=== PATIENT | male | born 2000 | race Caucasian/White ===

== ENCOUNTER 2020-05-19 02:21 | Observation (INO) | payer BC ==
--- NOTE | 2020-05-19 02:47 | ED ---
SOB HPI - General Chief Complaint: Shortness of Breath Stated Complaint: SOB Time Seen by Provider: 05/19/20 02:46 Source: patient, RN notes reviewed, old records reviewed Mode of arrival: ambulatory Limitations: no limitations - History of Present Illness Initial Comments: This is a 20-year-old male DF for evaluation patient presents today for evaluati on patient has chest pain shortness of breath significant anxiety elevated heart rate feels that he can't catch his breath. No history of asthma. Patient is significantly diaphoretic on initial evaluation. Patient denies any recent fevers or travel history. Patient states she's never had such severe shortness of breath with it is now. No history of asthma nonsmoker but he does state use a vaporizer present MD Complaint: shortness of breath, chest pain, anxiety -: hour(s) Severity: severe Severity scale (1-10): 9 Consistency: constant Improves With: nothing Worsens With: nothing Known History Of: other (Patient does use today and marijuana) Context: smoke/fume exposure, anxiety Associated Symptoms: denies other symptoms Treatments Prior to Arrival: none - Related Data Home Medications Medication Instructions Recorded Confirmed No Known Home Medications 05/19/20 05/19/20 Allergies Allergy/AdvReac Type Severity Reaction Status Date / Time No Known Allergies Allergy Verified 05/20/20 21:17 Review of Systems ROS Statement: Those systems with pertinent positive or pertinent negative responses have been documented in the HPI. ROS Other: All systems not noted in ROS Statement are negative. Past Medical History Past Medical History: No Reported History History of Any Multi-Drug Resistant Organisms: None Reported Past Surgical History: No Surgical Hx Reported Past Psychological History: Anxiety Smoking Status: Vaper Past Alcohol Use History: None Reported Past Drug Use History: Marijuana - Past Family History Father Additional Family Medical History / Comment(s): Anger issues. Mother Additional Family Medical History / Comment(s): Anxiety/depression. General Exam Limitations: no limitations General appearance: alert, in no apparent distress, anxious Head exam: Present: atraumatic, normocephalic, normal inspection Eye exam: Present: normal appearance, PERRL, EOMI. Absent: scleral icterus, conjunctival injection, periorbital swelling ENT exam: Present: normal exam, mucous membranes moist Neck exam: Present: normal inspection. Absent: tenderness, meningismus, lymphadenopathy Respiratory exam: Present: normal lung sounds bilaterally. Absent: respiratory distress, wheezes, rales, rhonchi, stridor Cardiovascular Exam: Present: normal rhythm, tachycardia, normal heart sounds. Absent: systolic murmur, diastolic murmur, rubs, gallop, clicks GI/Abdominal exam: Present: soft, normal bowel sounds. Absent: distended, tenderness, guarding, rebound, rigid Extremities exam: Present: normal inspection, full ROM, normal capillary refill. Absent: tenderness, pedal edema, joint swelling, calf tenderness Back exam: Present: normal inspection Neurological exam: Present: alert, oriented X3, CN II-XII intact Psychiatric exam: Present: normal affect, normal mood Skin exam: Present: warm, dry, intact, normal color. Absent: rash Course Vital Signs 05/19/20 05/19/20 05/19/20 02:23 03:22 03:27 Temperature 99.2 F Pulse Rate 105 H 89 88 Respiratory 26 H 18 Rate Blood Pressure 132/79 103/73 O2 Sat by Pulse 99 97 Oximetry 05/19/20 05/19/20 05/19/20 03:35 04:00 06:00 Temperature Pulse Rate 100 101 H 81 Respiratory 18 16 Rate Blood Pressure 148/64 131/64 O2 Sat by Pulse 97 100 Oximetry 05/19/20 08:46 Temperature Pulse Rate 84 Respiratory 18 Rate Blood Pressure 125/84 O2 Sat by Pulse 99 Oximetry - Reevaluation(s) Reevaluation #1: 05/19/20 04:54 Medical record is reviewed Reevaluation #2: 05/19/20 04:54 Patient was severely diaphoretic initial evaluation and short of breath. Patient remains short of breath with labile heart rate going from 130s sinus tachycardia to 80. No improvement with breathing treatments still feels short of breath Medical Decision Making - Medical Decision Making 20 mailed ER with nonspecific tachycardia shortness of breath that that can be inhalation induced lung damage, low pulse ox is normal at this time. Severe anxiety attack or other heart disease, pericarditis type issue. Patient has occasional chest pain still with shortness of breath, will be admitted - Lab Data Result diagrams: 05/19/20 02:59 05/19/20 02:59 Lab Results 05/19/20 05/19/20 05/19/20 Range/Units 02:59 02:59 02:59 WBC 12.1 H (4.0-11.0) k/uL RBC 5.25 (4.30-5.90) m/uL Hgb 14.8 (13.0-17.5) gm/dL Hct 43.7 (39.0-53.0) % MCV 83.3 (80.0-100.0) fL MCH 28.2 (25.0-35.0) pg MCHC 33.9 (31.0-37.0) g/dL RDW 13.0 (11.5-15.5) % Plt Count 318 (150-450) k/uL MPV 7.1 Neutrophils % 78 % Lymphocytes % 14 % Monocytes % 4 % Eosinophils % 3 % Basophils % 1 % Neutrophils # 9.4 H (1.3-7.7) k/uL Lymphocytes # 1.7 (1.0-4.8) k/uL Monocytes # 0.5 (0-1.0) k/uL Eosinophils # 0.3 (0-0.7) k/uL Basophils # 0.1 (0-0.2) k/uL PT 11.2 (9.0-12.0) sec INR 1.1 (<1.2) APTT 24.3 (22.0-30.0) sec D-Dimer <0.17 (<0.60) mg/L FEU Sodium 138 (137-145) mmol/L Potassium 3.6 (3.5-5.1) mmol/L Chloride 103 (98-107) mmol/L Carbon Dioxide 23 (22-30) mmol/L Anion Gap 12 mmol/L BUN 9 (9-20) mg/dL Creatinine 0.77 (0.66-1.25) mg/dL Est GFR (CKD-EPI)AfAm >90 (>60 ml/min/1.73 sqM) Est GFR (CKD-EPI)NonAf >90 (>60 ml/min/1.73 sqM) Glucose 96 (74-99) mg/dL Calcium 11.3 H (8.4-10.2) mg/dL Magnesium 1.8 (1.6-2.3) mg/dL Total Bilirubin 0.7 (0.2-1.3) mg/dL AST 23 (17-59) U/L ALT 18 (4-49) U/L Alkaline Phosphatase 67 (38-126) U/L Creatine Kinase 128 (55-170) U/L CK-MB (CK-2) (0.0-2.4) ng/mL Troponin I (0.000-0.034) ng/mL NT-Pro-B Natriuret Pep pg/mL Total Protein 8.3 H (6.3-8.2) g/dL Albumin 5.2 H (3.5-5.0) g/dL TSH (0.350-5.500) uIU/mL 05/19/20 05/19/20 05/19/20 Range/Units 02:59 02:59 02:59 WBC (4.0-11.0) k/uL RBC (4.30-5.90) m/uL Hgb (13.0-17.5) gm/dL Hct (39.0-53.0) % MCV (80.0-100.0) fL MCH (25.0-35.0) pg MCHC (31.0-37.0) g/dL RDW (11.5-15.5) % Plt Count (150-450) k/uL MPV Neutrophils % % Lymphocytes % % Monocytes % % Eosinophils % % Basophils % % Neutrophils # (1.3-7.7) k/uL Lymphocytes # (1.0-4.8) k/uL Monocytes # (0-1.0) k/uL Eosinophils # (0-0.7) k/uL Basophils # (0-0.2) k/uL PT (9.0-12.0) sec INR (<1.2) APTT (22.0-30.0) sec D-Dimer (<0.60) mg/L FEU Sodium (137-145) mmol/L Potassium (3.5-5.1) mmol/L Chloride (98-107) mmol/L Carbon Dioxide (22-30) mmol/L Anion Gap mmol/L BUN (9-20) mg/dL Creatinine (0.66-1.25) mg/dL Est GFR (CKD-EPI)AfAm (>60 ml/min/1.73 sqM) Est GFR (CKD-EPI)NonAf (>60 ml/min/1.73 sqM) Glucose (74-99) mg/dL Calcium (8.4-10.2) mg/dL Magnesium (1.6-2.3) mg/dL Total Bilirubin (0.2-1.3) mg/dL AST (17-59) U/L ALT (4-49) U/L Alkaline Phosphatase (38-126) U/L Creatine Kinase (55-170) U/L CK-MB (CK-2) 0.2 (0.0-2.4) ng/mL Troponin I <0.012 (0.000-0.034) ng/mL NT-Pro-B Natriuret Pep 34 pg/mL Total Protein (6.3-8.2) g/dL Albumin (3.5-5.0) g/dL TSH 1.500 (0.350-5.500) uIU/mL - EKG Data -: EKG Interpreted by Me (EKG shows sinus rhythm 75, LA 138 QRS 102 QTC 424) Disposition Clinical Impression: Anxiety, Tachycardia Disposition: ADMITTED IP TO THIS HOSP Condition: Good Is patient prescribed a controlled substance at d/c from ED?: No
[2020-05-19] MEDS ORDERED: LORazepam 2 MG/ML INJ IV STA (02:51)
[2020-05-19] MEDS ORDERED: SODIUM CHLORIDE 0.9% 1,000 ML IV STA ×2 (02:51)
[2020-05-19] MEDS ORDERED: IPRATROPIUM-ALBUTEROL 3 ML NEB INHALATION STA (02:51)
[2020-05-19] MEDS ORDERED: SODIUM CHLORIDE 0.9% 500 ML 500 ML IV STA (02:51)
[2020-05-19] MEDS ORDERED: KETOROLAC 15 MG/ML 1 ML VIAL IVP STA (02:52)
[2020-05-19 03:15] LABS: Basophils # (A) 0.1 k/uL (0-0.2); Basophils % (A) 1 %; Eosinophils # (A) 0.3 k/uL (0-0.7); Eosinophils % (A) 3 %; HCT 43.7 % (39.0-53.0); HGB 14.8 gm/dL (13.0-17.5); Lymphocytes # (A) 1.7 k/uL (1.0-4.8); Lymphocytes % (A) 14 %; MCH 28.2 pg (25.0-35.0); MCHC 33.9 g/dL (31.0-37.0); MCV 83.3 fL (80.0-100.0); Mean Platelet Volume 7.1; Monocytes # (A) 0.5 k/uL (0-1.0); Monocytes % (A) 4 %; Neutrophils # (A) 9.4 k/uL (1.3-7.7); Neutrophils % (A) 78 %; Platelet Count 318 k/uL (150-450); RBC 5.25 m/uL (4.30-5.90); WBC 12.1 k/uL (4.0-11.0)
--- NOTE | 2020-05-19 03:23 | XR ---
EXAM: XR Chest, 2 Views CLINICAL HISTORY: ITS.REASON XR Reason: difficulty breathing TECHNIQUE: Frontal and lateral views of the chest. COMPARISON: No relevant prior studies available. FINDINGS: Lungs: Unremarkable. No consolidation. Pleural space: Unremarkable. No pneumothorax. Heart: Unremarkable. No cardiomegaly. Mediastinum: Unremarkable. Bones/joints: Unremarkable. IMPRESSION: No acute cardiopulmonary process is identified.
[2020-05-19 03:42] LABS: D-Dimer <0.17 mg/L FEU (<0.60); INR 1.1 (<1.2); Partial Thromboplastin Time 24.3 sec (22.0-30.0); Prothrombin Time 11.2 sec (9.0-12.0)
[2020-05-19 03:46] LABS: Creatine Kinase MB 0.2 ng/mL (0.0-2.4); Troponin I <0.012 ng/mL (0.000-0.034)
[2020-05-19 04:00] LABS: Potassium 3.6 mmol/L (3.5-5.1)
[2020-05-19 04:01] LABS: ALT 18 U/L (4-49); AST 23 U/L (17-59); African American GFR (CKD) >90 (>60 ml/min/1.73 sqM); Albumin 5.2 g/dL (3.5-5.0); Alkaline Phosphatase 67 U/L (38-126); Anion Gap 12 mmol/L; Blood Urea Nitrogen 9 mg/dL (9-20); Calcium 11.3 mg/dL (8.4-10.2); Carbon Dioxide 23 mmol/L (22-30); Chloride 103 mmol/L (98-107); Creatine Kinase 128 U/L (55-170); Glucose 96 mg/dL (74-99); Magnesium 1.8 mg/dL (1.6-2.3); Non-African American GFR(CKD) >90 (>60 ml/min/1.73 sqM); Sodium 138 mmol/L (137-145); Total Bilirubin 0.7 mg/dL (0.2-1.3); Total Protein 8.3 g/dL (6.3-8.2)
[2020-05-19] MEDS ORDERED: MORPHINE SULFATE 4 MG/ML SYRINGE IV PRN (04:51)
[2020-05-19] MEDS ORDERED: NITROGLYCERIN SL TABS 0.4 MG TAB SUBLINGUAL PRN (04:51)
[2020-05-19] MEDS ORDERED: ASPIRIN 81 MG PO STA (04:51)
[2020-05-19 09:35] VITALS: TEMP 98.4
--- NOTE | 2020-05-19 12:31 | P.HPIM ---
History of Present Illness Patient came in with compensative shortness of breath and chest pressure like sensation patient has constant chest pressure like sensation which has been going on for about Couple days no radiation no diaphoresis. Patient is also co mplaining of some shortness of breath. All all the workup is negative. Patient does admit to using marijuana on daily basis. Although patient didn't use any additional or extra marijuana. Patient troponins were negative EKG sinus rhythm but showed some sinus arrhythmia no acute ST-T wave changes patient doesn't have any family history of premature or not her disease. Patient denied any fever chills flulike symptoms. Patient chest pressure is [id number] in severity and presently very minimal pressure across the chest. Review of Systems REVIEW OF SYSTEMS: CONSTITUTIONAL: No fever, no malaise, no fatigue. HEENT: No recent visual problems or hearing problems. Denied any sore throat. CARDIOVASCULAR: No orthopnea, PND, no palpitations, no syncope. PULMONARY: No no cough, no hemoptysis. GASTROINTESTINAL: No diarrhea, no nausea, no vomiting, no abdominal pain. NEUROLOGICAL: No headaches, no weakness, no numbness. HEMATOLOGICAL: Denies any bleeding or petechiae. GENITOURINARY: Denies any burning micturition, frequency, or urgency. MUSCULOSKELETAL/RHEUMATOLOGICAL: Denies any joint pain, swelling, or any muscle pain. ENDOCRINE: Denies any polyuria or polydipsia. The rest of the 14-point review of systems is negative. Past Medical History Past Medical History: No Reported History History of Any Multi-Drug Resistant Organisms: None Reported Past Surgical History: Hernia Repair Past Anesthesia/Blood Transfusion Reactions: No Reported Reaction Smoking Status: Vaper - Past Family History Father Additional Family Medical History / Comment(s): Anger issues. Mother Additional Family Medical History / Comment(s): Anxiety/depression. Medications and Allergies Home Medications Medication Instructions Recorded Confirmed Type No Known Home Medications 05/19/20 05/19/20 History Allergies Allergy/AdvReac Type Severity Reaction Status Date / Time No Known Allergies Allergy Verified 05/19/20 06:15 Physical Exam Vitals: Vital Signs Temp Pulse Pulse Resp BP BP Pulse Ox 05/19/20 09:34 98.4 F 68 18 121/75 99 05/19/20 08:46 84 18 125/84 99 05/19/20 06:00 81 16 131/64 100 05/19/20 04:00 101 H 18 148/64 97 05/19/20 03:35 100 05/19/20 03:27 88 18 103/73 97 05/19/20 03:22 89 05/19/20 02:23 99.2 F 105 H 26 H 132/79 99 Intake and Output 05/18/20 05/19/20 05/19/20 22:59 06:59 14:59 Other: Weight 86.183 kg 86.183 kg PHYSICAL EXAMINATION: GENERAL: The patient is alert and oriented x3, not in any acute distress. Well developed, well nourished. HEENT: Pupils are round and equally reacting to light. EOMI. No scleral icterus. No conjunctival pallor. Normocephalic, atraumatic. No pharyngeal erythema. No thyromegaly. CARDIOVASCULAR: S1 and S2 present. No murmurs, rubs, or gallops. PULMONARY: Chest is clear to auscultation, no wheezing or crackles. ABDOMEN: Soft, nontender, nondistended, normoactive bowel sounds. No palpable organomegaly. MUSCULOSKELETAL: No joint swelling or deformity. EXTREMITIES: No cyanosis, clubbing, or pedal edema. NEUROLOGICAL: Gross neurological examination did not reveal any focal deficits. SKIN: No rashes. Results CBC & Chem 7: 05/19/20 02:59 05/19/20 02:59 Labs: Abnormal Lab Results - Last 24 Hours (Table) 05/19/20 05/19/20 Range/Units 02:59 02:59 WBC 12.1 H (4.0-11.0) k/uL Neutrophils # 9.4 H (1.3-7.7) k/uL Calcium 11.3 H (8.4-10.2) mg/dL Total Protein 8.3 H (6.3-8.2) g/dL Albumin 5.2 H (3.5-5.0) g/dL Thrombosis Risk Factor Assmnt - Choose All That Apply Any of the Below Risk Factors Present?: Yes Each Factor Represents 1 point: Obesity (BMI >25) Other Risk Factors: No Other congenital or acquired thrombophilia - If yes, enter type in comment: No Thrombosis Risk Factor Assessment Total Risk Factor Score: 1 Thrombosis Risk Factor Assessment Level: Low Risk Assessment and Plan Plan: -Chest tightness: Etiology is not clear but we ruled out acute chronic syndromes, cardiology evaluated the patient. Troponins are negative. Ruled out pulmonary embolism with normal d-dimer. Patient doesn't have any asthma or wheezing at this time patient doesn't have any pneumonia. Patient pain can be musculoskeletal asked him to take as needed nonsteroidal anti-inflammatories there is no evidence of pleuritis or pericarditis. -Sinus arrhythmia no further intervention benign Leukocytosis reactive without any evidence of infection -Anxiety disorder -History of marijuana usage: Counseling was provided Patient will be discharged to follow with PCP as an outpatient.
[2020-05-19 14:54] VITALS: BP 115/60; PULSE 79; RESP 16
--- NOTE | 2020-05-19 15:12 | P.CRDCN ---
History of Present Illness Consult date: 05/19/20 History of present illness: CHIEF COMPLAINT: Tachycardia HISTORY OF PRESENT ILLNESS: This is a 20-year-old male with a past medical history significant for anxiety, marijuana use, and vaping. 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 We have been asked to see the patient in consultation for tachycardia and shortness of breath. Patient examined this morning at the bedside. Patient states he was not necessarily short of breath yesterday but states he felt like he had a 200 pound weight sitting on his chest. He states that he could not get a full breath. He denies any fever or chills, or cough. He denies any chest pain. At the time of examination he denies any palpitations. DIAGNOSTICS: EKG reveals sinus mechanism with sinus arrhythmia Chest xray negative for acute process Laboratory data: WBC 12.1. Hemoglobin 14.8. Platelet count 318. D-dimer 0.17. Sodium 138. Potassium 3.6. BUN 9. Creatinine 0.77. Magnesium 1.8. Troponin negative 2. BNP 34. Current home cardiac medications include none REVIEW OF SYSTEMS: At the time of my exam: CONSTITUTIONAL: Denies fever or chills. HEENT: Denies blurred vision, vision changes, or eye pain. Denies hemoptysis CARDIOVASCULAR: Denies chest pain, orthopnea, PND or palpitations RESPIRATORY: No shortness of breath. GASTROINTESTINAL: Denies abdominal pain. Denies nausea or vomiting. HEMATOLOGIC: Denies bleeding disorders. GENITOURINARY: Denies any blood in urine. SKIN: Denies pruitis. Denies rash. PHYSICAL EXAM: VITAL SIGNS: Reviewed. GENERAL: Well-developed in no acute distress. HEENT: Head is normocephalic. Pupils are equal, round. Sclerae anicteric. Mucous membranes of the mouth are moist. Neck supple. No JVD or thyromegaly LUNGS: Respirations even and unlabored. Lungs essentially clear to auscultation bilaterally. HEART: Regular rate and rhythm. S1 and S2 heard. ABDOMEN: Soft. Nondistended. Nontender. EXTREMITIES: Normal range of motion. No clubbing or cyanosis. Peripheral pulses intact. No lower extremity edema NEUROLOGIC: Awake and alert. Oriented x 3. ASSESSMENT: Complaints of being unable to take a full breath, but denies shortness of breath, etiology unclear, may be secondary to vaping Anxiety Marijuana use History of vaping PLAN: Echocardiogram completed revealing ejection fraction 60-65% No significant arrhythmias noted on telemetry Recommend abstinence from marijuana and vaping Patient is stable for discharge from a cardiac standpoint. We will sign off. Please reconsult if needed. Nurse practitioner note has been reviewed by physician. Signing provider agrees with the documented findings, assessment, and plan of care. Past Medical History Past Medical History: No Reported History History of Any Multi-Drug Resistant Organisms: None Reported Past Surgical History: Hernia Repair Past Anesthesia/Blood Transfusion Reactions: No Reported Reaction Smoking Status: Vaper - Past Family History Father Additional Family Medical History / Comment(s): Anger issues. Mother Additional Family Medical History / Comment(s): Anxiety/depression. Medications and Allergies Home Medications Medication Instructions Recorded Confirmed Type No Known Home Medications 05/19/20 05/19/20 History Allergies Allergy/AdvReac Type Severity Reaction Status Date / Time No Known Allergies Allergy Verified 05/19/20 06:15 Physical Exam Vitals: Vital Signs Temp Pulse Pulse Resp BP BP Pulse Ox 05/19/20 14:52 79 16 115/60 99 05/19/20 09:34 98.4 F 68 18 121/75 99 05/19/20 08:46 84 18 125/84 99 05/19/20 06:00 81 16 131/64 100 05/19/20 04:00 101 H 18 148/64 97 05/19/20 03:35 100 05/19/20 03:27 88 18 103/73 97 05/19/20 03:22 89 05/19/20 02:23 99.2 F 105 H 26 H 132/79 99 Intake and Output 05/19/20 05/19/20 05/19/20 06:59 14:59 22:59 Other: Weight 86.183 kg 86.183 kg Results 05/19/20 02:59 05/19/20 02:59 Cardiac Enzymes 05/19/20 05/19/20 05/19/20 Range/Units 02:59 02:59 05:50 AST 23 (17-59) U/L CK-MB (CK-2) 0.2 (0.0-2.4) ng/mL Troponin I <0.012 <0.012 (0.000-0.034) ng/mL 05/19/20 Range/Units 09:18 AST (17-59) U/L CK-MB (CK-2) (0.0-2.4) ng/mL Troponin I <0.012 (0.000-0.034) ng/mL Coagulation 05/19/20 Range/Units 02:59 PT 11.2 (9.0-12.0) sec APTT 24.3 (22.0-30.0) sec CBC 05/19/20 Range/Units 02:59 WBC 12.1 H (4.0-11.0) k/uL RBC 5.25 (4.30-5.90) m/uL Hgb 14.8 (13.0-17.5) gm/dL Hct 43.7 (39.0-53.0) % Plt Count 318 (150-450) k/uL Comprehensive Metabolic Panel 05/19/20 Range/Units 02:59 Sodium 138 (137-145) mmol/L Potassium 3.6 (3.5-5.1) mmol/L Chloride 103 (98-107) mmol/L Carbon Dioxide 23 (22-30) mmol/L BUN 9 (9-20) mg/dL Creatinine 0.77 (0.66-1.25) mg/dL Glucose 96 (74-99) mg/dL Calcium 11.3 H (8.4-10.2) mg/dL AST 23 (17-59) U/L ALT 18 (4-49) U/L Alkaline Phosphatase 67 (38-126) U/L Total Protein 8.3 H (6.3-8.2) g/dL Albumin 5.2 H (3.5-5.0) g/dL Current Medications Generic Name Dose Route Start Last Admin Trade Name Freq PRN Reason Stop Dose Admin Morphine Sulfate 4 mg 05/19/20 04:51 Morphine Sulfate 4 Mg/Ml Syringe IV Q4HR PRN Chest Pain Nitroglycerin 0.4 mg 05/19/20 04:51 Nitroglycerin Sl Tabs 0.4 Mg Tab SUBLINGUAL Q5M PRN Chest Pain Intake and Output 05/19/20 05/19/20 05/19/20 06:59 14:59 22:59 Other: Weight 86.183 kg 86.183 kg Patient Weight 05/20/20 06:59 Weight 86.183 kg 05/19/20 02:59 05/19/20 02:59
--- NOTE | 2020-05-19 17:45 | ECHOF ---
Referral Reason:tachycardia MEASUREMENTS -------- HEIGHT: 177.8 cm WEIGHT: 86.2 kg BP: 131/64 RVIDd: 3.0 cm (< 3.3) IVSd: 1.0 cm (0.6 - 1.1) LVIDd: 4.9 cm (3.9 - 5.3) LVPWd: 1.1 cm (0.6 - 1.1) IVSs: 1.3 cm LVIDs: 3.2 cm LVPWs: 1.6 cm LA Diam: 3.2 cm (2.7 - 3.8) Ao Diam: 2.7 cm (2.0 - 3.7) AV Cusp: 2.3 cm (1.5 - 2.6) MV EXCURSION: 23.688 mm (> 18.000) MV EF SLOPE: 172 mm/s (70 - 150) EPSS: 0.6 cm MV E Sánchez: 1.14 m/s MV DecT: 285 ms MV A Sánchez: 0.52 m/s MV E/A Ratio: 2.20 RAP: 5.00 mmHg RVSP: 24.21 mmHg FINDINGS -------- Sinus rhythm. This was a technically good study. The left ventricular size is normal. Left ventricular wall thickness is normal. Overall left vent ricular systolic function is normal with, an EF between 60 - 65 %. The right ventricle is normal in size. The left atrium is normal in size. The right atrium is normal in size. Interatrial and interventricular septum intact. The aortic valve is trileaflet and appears structurally normal. The mitral valve is normal. Mild tricuspid regurgitation present. There is mild pulmonary hypertension. The right ventricular systolic pressure, as measured by Doppler, is 24.21mmHg. Trace/mild (physiologic) pulmonic regurgitation. The aortic root size is normal. Normal inferior vena cava with normal inspiratory collapse consistent with estimated right atrial pre ssure of 5 mmHg. There is no pericardial effusion. CONCLUSIONS -------- 1. The left ventricular size is normal. 2. Left ventricular wall thickness is normal. 3. Overall left ventricular systolic function is normal with, an EF between 60 - 65 %. 4. Mild tricuspid regurgitation present. 5. There is mild pulmonary hypertension. 6. The right ventricular systolic pressure, as measured by Doppler, is 24.21mmHg. 7. Trace/mild (physiologic) pulmonic regurgitation. 8. There is no pericardial effusion. JEWELRY MOLD MAKER: Ana Laura Espinal RDCS
[2020-05-20] MEDS ORDERED: ASPIRIN 325 MG TAB PO SCH (09:00)
== END 2020-05-19 15:12 | disposition home or self-care (01) ==
LOC: EC 02:21 → 6NMEDSUR 04:53
PROVIDERS: ADMIT Hospitalist; ATTEND Hospitalist
DX: R07.89 Other chest pain (principal); I49.8 Other specified cardiac arrhythmias; R06.02 Shortness of breath; F41.9 Anxiety disorder, unspecified; R61 Generalized hyperhidrosis; D72.829 Elevated white blood cell count, unspecified; F12.90 Cannabis use, unspecified, uncomplicated; E66.9 Obesity, unspecified; Z68.27 Body mass index [BMI] 27.0-27.9, adult; F17.290 Nicotine dependence, other tobacco product, uncomplicated; Z98.890 Other specified postprocedural states; Z81.8 Family history of other mental and behavioral disorders; Z20.828 Contact with and (suspected) exposure to other viral communicable diseases
CPT/HCPCS: 96361; 96374; 96375; 99285; 36415; 94640; 93005; 93306; 85379; 83880; 80053; 84443; 82550; 82553; 83735; 84484; 85025; 85610; 85730; 87635; 71046; G0378; J2060; J1885

== ENCOUNTER 2020-05-20 21:12 | Emergency (ER) | payer BC ==
[2020-05-20 21:17] VITALS: PULSE 92; TEMP 98.3
[2020-05-20] MEDS ORDERED: LORazepam 1 MG TAB PO STA ×2 (21:32→22:36)
[2020-05-20] MEDS ORDERED: SODIUM CHLORIDE 0.9% 1,000 ML IV STA (21:32)
--- NOTE | 2020-05-20 21:35 | ED ---
Anxiety HPI - General Chief Complaint: Anxiety Stated Complaint: Chest Pain, SOB, Mental Health Time Seen by Provider: 05/20/20 21:21 Source: patient, RN notes reviewed Mode of arrival: ambulatory - History of Present Illness Initial Comments: Patient is a 20-year-old male presents emergency department complaining of continuing chest pain he was here last night with a similar complaint but was discharged after some observation. He noted that it all started one morning when he woke up holding his breath ever since then his chest is been tight and hurting. He noted that this is causing anxiety to increase and cause dark thoughts. He noted that he's been having suicidal ideations but does not have a plan. He noted some symptoms such as tingling in his arms and legs. He denied any pain, shortness of breath, headache, nausea vomiting diarrhea constipation fever fatigue chills. - Related Data Home Medications: Home Medications Medication Instructions Recorded Confirmed No Known Home Medications 05/19/20 05/19/20 Allergies/Adverse Reactions: Allergies Allergy/AdvReac Type Severity Reaction Status Date / Time No Known Allergies Allergy Verified 05/20/20 21:17 Review of Systems ROS Statement: Those systems with pertinent positive or pertinent negative responses have been documented in the HPI. ROS Other: All systems not noted in ROS Statement are negative. Past Medical History Past Medical History: No Reported History History of Any Multi-Drug Resistant Organisms: None Reported Past Surgical History: Hernia Repair Past Anesthesia/Blood Transfusion Reactions: No Reported Reaction Past Psychological History: Anxiety Smoking Status: Vaper Past Alcohol Use History: None Reported Past Drug Use History: Marijuana - Past Family History Father Additional Family Medical History / Comment(s): Anger issues. Mother Additional Family Medical History / Comment(s): Anxiety/depression. General Exam Limitations: no limitations General appearance: alert, in distress Head exam: Present: atraumatic, normocephalic, normal inspection Eye exam: Present: normal appearance, PERRL, EOMI. Absent: scleral icterus, conjunctival injection, periorbital swelling ENT exam: Present: normal exam, mucous membranes moist Neck exam: Present: normal inspection. Absent: tenderness, meningismus, lymphadenopathy Respiratory exam: Present: normal lung sounds bilaterally. Absent: respiratory distress, wheezes, rales, rhonchi, stridor Cardiovascular Exam: Present: regular rate, normal rhythm, normal heart sounds. Absent: systolic murmur, diastolic murmur, rubs, gallop, clicks GI/Abdominal exam: Present: soft, normal bowel sounds. Absent: distended, tenderness, guarding, rebound, rigid Extremities exam: Present: normal inspection, full ROM, normal capillary refill. Absent: tenderness, pedal edema, joint swelling, calf tenderness Back exam: Present: normal inspection Neurological exam: Present: alert, oriented X3, CN II-XII intact Psychiatric exam: Present: normal affect, normal mood Skin exam: Present: warm, dry, intact, normal color. Absent: rash Course Vital Signs 05/20/20 21:14 Temperature 98.3 F Pulse Rate 92 Respiratory 20 Rate Blood Pressure 131/79 O2 Sat by Pulse 99 Oximetry Medical Decision Making - Medical Decision Making 20-year-old male complaining of chest pain, palpitations, extremity numbness and tingling with a history of anxiety. Patient's having suicidal ideations: ASIC labs, EtOH, urine drug screen ordered. 1 mg of Ativan ordered. Labs unremarkable, positive for THC. Case discussed with Dr. Santizo Patient cleared for psych eval. Psych nurse recommended outpatient therapy - Lab Data Result diagrams: 05/20/20 21:55 05/20/20 21:55 Lab Results 05/20/20 05/20/20 05/20/20 Range/Units 21:55 21:55 21:55 WBC 8.9 (4.0-11.0) k/uL RBC 5.16 (4.30-5.90) m/uL Hgb 14.8 (13.0-17.5) gm/dL Hct 43.5 (39.0-53.0) % MCV 84.2 (80.0-100.0) fL MCH 28.6 (25.0-35.0) pg MCHC 34.0 (31.0-37.0) g/dL RDW 12.5 (11.5-15.5) % Plt Count 336 (150-450) k/uL MPV 7.0 Neutrophils % 76 % Lymphocytes % 17 % Monocytes % 4 % Eosinophils % 1 % Basophils % 0 % Neutrophils # 6.7 (1.3-7.7) k/uL Lymphocytes # 1.5 (1.0-4.8) k/uL Monocytes # 0.4 (0-1.0) k/uL Eosinophils # 0.1 (0-0.7) k/uL Basophils # 0.0 (0-0.2) k/uL Sodium 139 (137-145) mmol/L Potassium 4.1 (3.5-5.1) mmol/L Chloride 103 (98-107) mmol/L Carbon Dioxide 25 (22-30) mmol/L Anion Gap 11 mmol/L BUN 14 (9-20) mg/dL Creatinine 0.87 (0.66-1.25) mg/dL Est GFR (CKD-EPI)AfAm >90 (>60 ml/min/1.73 sqM) Est GFR (CKD-EPI)NonAf >90 (>60 ml/min/1.73 sqM) Glucose 92 (74-99) mg/dL Calcium 10.6 H (8.4-10.2) mg/dL Total Bilirubin 0.6 (0.2-1.3) mg/dL AST 24 (17-59) U/L ALT 18 (4-49) U/L Alkaline Phosphatase 65 (38-126) U/L Total Protein 8.3 H (6.3-8.2) g/dL Albumin 5.3 H (3.5-5.0) g/dL Urine Color Light Yellow Urine Appearance Clear (Clear) Urine pH 7.5 (5.0-8.0) Ur Specific [place] 1.013 (1.001-1.035) Urine Protein Negative (Negative) Urine Glucose (UA) Negative (Negative) Urine Ketones 1+ H (Negative) Urine Blood Trace H (Negative) Urine Nitrite Negative (Negative) Urine Bilirubin Negative (Negative) Urine Urobilinogen <2.0 (<2.0) mg/dL Ur Leukocyte Esterase Negative (Negative) Urine RBC 2 (0-5) /hpf Urine Bacteria Rare H (None) /hpf Urine Mucus Rare H (None) /hpf Urine Opiates Screen Not Detected (NotDetected) Ur Oxycodone Screen Not Detected (NotDetected) Urine Methadone Screen Not Detected (NotDetected) Ur Propoxyphene Screen Not Detected (NotDetected) Ur Barbiturates Screen Not Detected (NotDetected) U Tricyclic Antidepress Not Detected (NotDetected) Ur Phencyclidine Scrn Not Detected (NotDetected) Ur Amphetamines Screen Not Detected (NotDetected) U Methamphetamines Scrn Not Detected (NotDetected) U Benzodiazepines Scrn Not Detected (NotDetected) Urine Cocaine Screen Not Detected (NotDetected) U Marijuana (THC) Screen Detected H (NotDetected) - EKG Data -: EKG Interpreted by Me EKG shows normal: sinus rhythm Rate: normal EKG Comments: Ventricular rate 74 bpm, WI interval 134 ms, QRS duration 102 ms, QT/QTc 400/4 and 44 ms, PareT axes 57/57/36. Sinus rhythm with marked sinus arrhythmia, incomplete right bundle branch block, borderline ECG. Disposition Clinical Impression: Acute anxiety, Tachycardia, Panic attack Disposition: HOME SELF-CARE Condition: Stable Instructions (If sedation given, give patient instructions): Generalized Anxiety Disorder (ED) Additional Instructions: Please return to the Emergency Department if symptoms worsen or any other concerns. Take Ativan tomorrow. Follow-up with primary care 1-2 days. Follow-up with outpatient psych this is possible. Is patient prescribed a controlled substance at d/c from ED?: No Referrals: Del Vaca MD [Primary Care Provider] - 1-2 days Time of Disposition: 22:37
[2020-05-20 22:02] LABS: Appearance,Urine Clear (Clear); Bacteria,Urine Rare /hpf; Bilirubin,Urine Negative (Negative); Blood,Urine Trace (Negative); Color,Urine Light Yellow; Glucose,Urine (UA) Negative (Negative); Ketones,Urine 1+ (Negative); Leukocyte Esterase,Urine Negative (Negative); Mucus,Urine Rare /hpf; Nitrite,Urine Negative (Negative); PH, Urine 7.5 (5.0-8.0); Protein,Urine Negative (Negative); RBC,Urine 2 /hpf (0-5); Specific Gravity,Urine 1.013 (1.001-1.035); Urobilinogen,Urine <2.0 mg/dL (<2.0)
[2020-05-20 22:08] LABS: Basophils % (A) 0 %; Eosinophils # (A) 0.1 k/uL (0-0.7); Eosinophils % (A) 1 %; HCT 43.5 % (39.0-53.0); HGB 14.8 gm/dL (13.0-17.5); Lymphocytes # (A) 1.5 k/uL (1.0-4.8); Lymphocytes % (A) 17 %; MCH 28.6 pg (25.0-35.0); MCV 84.2 fL (80.0-100.0); Monocytes # (A) 0.4 k/uL (0-1.0); Monocytes % (A) 4 %; Neutrophils # (A) 6.7 k/uL (1.3-7.7); Neutrophils % (A) 76 %; Platelet Count 336 k/uL (150-450); RBC 5.16 m/uL (4.30-5.90); RDW 12.5 % (11.5-15.5); WBC 8.9 k/uL (4.0-11.0)
[2020-05-20 22:09] LABS: Amphetamine Screen,Urine Not Detected (NotDetected); Barbiturate Screen,Urine Not Detected (NotDetected); Benzodiazepines Screen,Urine Not Detected (NotDetected); Cocaine Screen,Urine Not Detected (NotDetected); Methadone Screen, Urine Not Detected (NotDetected); Opiate Screen,Urine Not Detected (NotDetected); Oxycodone Screen, Urine Not Detected (NotDetected); Phencyclidine Screen,Urine Not Detected (NotDetected); Tricyclic Antidepressant,Urine Not Detected (NotDetected); Urn Cannabinoid Scrn Detected (NotDetected)
[2020-05-20 22:23] LABS: ALT 18 U/L (4-49); AST 24 U/L (17-59); African American GFR (CKD) >90 (>60 ml/min/1.73 sqM); Albumin 5.3 g/dL (3.5-5.0); Alkaline Phosphatase 65 U/L (38-126); Anion Gap 11 mmol/L; Blood Urea Nitrogen 14 mg/dL (9-20); Calcium 10.6 mg/dL (8.4-10.2); Carbon Dioxide 25 mmol/L (22-30); Chloride 103 mmol/L (98-107); Glucose 92 mg/dL (74-99); Non-African American GFR(CKD) >90 (>60 ml/min/1.73 sqM); Potassium 4.1 mmol/L (3.5-5.1); Sodium 139 mmol/L (137-145); Total Bilirubin 0.6 mg/dL (0.2-1.3); Total Protein 8.3 g/dL (6.3-8.2)
[2020-05-20 23:08] VITALS: BP 141/82; RESP 16
== END 2020-05-20 23:08 | disposition home or self-care (01) ==
LOC: EC 21:12
DX: F41.0 Panic disorder [episodic paroxysmal anxiety] (principal); R00.0 Tachycardia, unspecified; R20.0 Anesthesia of skin; R20.2 Paresthesia of skin; R45.851 Suicidal ideations; F12.90 Cannabis use, unspecified, uncomplicated; F17.290 Nicotine dependence, other tobacco product, uncomplicated
CPT/HCPCS: 36415; 80053; 80306; 81001; 82075; 85025; 93005; 99284